=== PATIENT | male | born 1990 | race Caucasian/White ===

== ENCOUNTER 2019-06-14 06:57 | Emergency (ER) | payer OTHER ==
[2019-06-14] MEDS ORDERED: PROMETHAZINE INJ 25 MG/ML AMP ONE (07:22)
[2019-06-14] MEDS ORDERED: FENTANYL CITR 100 MCG/2 ML ONE (07:23)
[2019-06-14] MEDS ORDERED: NA CHLORIDE 0.9% 1,000 ML ONE ×2 (07:23→09:18)
[2019-06-14 07:44] LABS: Absolute Lymphocytes (CBC) 3.3 K/uL (0.7-4.9); Basophils % 0.6 % (0-1.3); Hematocrit 49.4 % (39.6-49.0); Lymphocytes % 47.1 % (15.3-44.8); MPV 8.9 fL (7.6-11.3); RBC Red Blood Cell Count 5.88 M/uL (4.33-5.43)
[2019-06-14] MEDS ORDERED: ALBUTEROL INHALER 60 PUFF/8 GM IH ONE (07:45)
[2019-06-14 07:55] LABS: Potassium 3.5 mmol/L (3.5-5.1)
--- NOTE | 2019-06-14 08:09 | RAD REPORT ---
EXAM DESCRIPTION: RAD - Chest Pa And Lat (2 Views) - 06/14/2019 7:50 am CLINICAL HISTORY: COUGH, fever, body aches COMPARISON: None TECHNIQUE: Frontal and lateral views of the chest were obtained. FINDINGS: The lungs are clear. Heart size is normal and central vasculature is within normal limit s. No pleural effusion or pneumothorax seen. No acute bony finding noted. No aortic abnormality. IMPRESSION: No acute cardiopulmonary process.
--- NOTE | 2019-06-14 09:04 | RAD REPORT ---
EXAM DESCRIPTION: CT - Chest For Pe Angio - 06/14/2019 8:42 am CLINICAL HISTORY: fever;Chest pain COMPARISON: Chest Pa And Lat (2 Views) dated 06/14/2019 TECHNIQUE: Dynamically enhanced 3 mm thick images of the chest were obtained during administration o f approximately 150mL Isovue 370 IV contrast. Coronal and oblique MIP reconstruction images were gene rated and reviewed. Exam utilizes a protocol to evaluate the pulmonary arterial tree. All CT scans are performed using dose optimization technique as appropriate and may include automated exposure control or mA/KV adjustment according to patient size. FINDINGS: No pulmonary emboli are identified. The aorta as imaged shows no acute or suspicious finding. No pericardial thickening or effusion. No consolidation, mass or ground-glass opacification identified. Slight motion degradation is present . Interstitial markings are minimally prominent. Mild viral infiltrate is possible. No pleural effusi on or pleural thickening. No mediastinal or hilar suspicious masses. No chest wall masses or abnormal axillary lymphadenopathy. IMPRESSION: No pulmonary emboli identified. Mild prominence of the interstitial markings. This is potentially a mild edema or viral infiltrate. N o consolidation or ground-glass opacification.
[2019-06-14 09:16] LABS: Blood Morphology Comment NOT SEEN (NOT SEEN); Platelet Estimate ADEQ
--- NOTE | 2019-06-14 10:55 | ER ---
Nurse's Notes [facility] Name: Mane Tineo Jr Age: 28 yrs Sex: Male : 1990 Arrival Date: 06/14/2019 Time: 07:01 Bed 7 Private MD: Diagnosis: Influenza due to certain identified influenza viruses-B;Viral pneumonia, not elsewhere classified Presentation: 06/13 07:44 Chief complaint: Patient states: started with a sore throat a week ago, developed fever em on Thursday, reports trouble breathing and SOB, also developed abdominal cramping and diarrhea on , reports body aches, traveled to [facility] 2 weeks ago. Coronavirus screen: Patient reports a subjective fever or greater than 100.4F, or cough, or shortness of breath, or difficulty breathing. Surgical mask placed on patient. Patient moved to private room, placed in contact and droplet isolation with eye protection until further assessment. Patient reports travel on a cruise ship or to a country the [facility] currently lists as an affected area. Patient reports contact with known and/or suspected case of COVID-19. Infection Prevention Nurse has been notified of patient in isolation for probable COVID-19. Ebola Screen: Patient negative for fever greater than or equal to 101.5 degrees Fahrenheit, and additional compatible Ebola Virus Disease symptoms Patient denies exposure to infectious person. Patient denies travel to an Ebola-affected area in the 21 days before illness onset. No symptoms or risks identified at this time. Initial Sepsis Screen: Does the patient meet any 2 criteria? RR > 20 per min. No. Patient's initial sepsis screen is negative. Does the patient have a suspected source of infection? Yes: Productive cough/pneumonia. Risk Assessment: Do you want to hurt yourself or someone else? Patient reports no desire to harm self or others. 07:44 Method Of Arrival: Ambulatory em 07:44 Acuity: GORDON 3 em Historical: - Allergies: 07:10 No Known Allergies; em - Home Meds: 07:10 None [Active]; em - PMHx: 07:10 None; em - PSHx: 07:10 None; em - Immunization history:: Adult Immunizations up to date. - Social history:: Smoking status: Patient denies any tobacco usage or history of. Screenin:15 Abuse screen: Denies threats or abuse. Nutritional screening: No deficits noted. em Tuberculosis screening: No symptoms or risk factors identified. Fall Risk None identified. Assessment: 07:20 General: Appears in no apparent distress. uncomfortable, well groomed, well developed, em well nourished, Behavior is calm, cooperative, appropriate for age, Reports fever for > 3 days, feeling ill for > 3 days. Pain: Complains of pain in "body aches" Pain currently is 8 out of 10 on a pain scale. Pain began last Thursday. Neuro: Level of Consciousness is awake, alert, obeys commands, Oriented to person, place, time, situation, Appropriate for age. Respiratory: Reports shortness of breath cough that is Airway is patent Respiratory effort is even, unlabored, Respiratory pattern is regular, tachypnea unable to assess due to droplet precaution. Derm: Skin is intact, is healthy with good turgor, Skin is pink, warm \\T\\ dry. Musculoskeletal: Range of motion: intact in all extremities. 08:01 Reassessment: Patient appears in no apparent distress at this time. Patient and/or em family updated on plan of care and expected duration. Pain level reassessed. Patient states feeling better. Patient states symptoms have improved. 08:29 Reassessment: wheeled to CT via stretcher, placed mask on pt per protocol. em 08:40 Reassessment: Patient appears in no apparent distress at this time. returned from CT. em 08:50 Reassessment: Patient appears in no apparent distress at this time. Patient and/or em family updated on plan of care and expected duration. Pain level reassessed. Patient is alert, oriented x 3, equal unlabored respirations, skin warm/dry/pink. no needs at this time, pending CT result. 09:30 Reassessment: Patient appears in no apparent distress at this time. Patient and/or em family updated on plan of care and expected duration. Pain level reassessed. Patient is alert, oriented x 3, equal unlabored respirations, skin warm/dry/pink. 06/14 08:15 Reassessment: pt notified of negative COVID-19 swab results. Advised to continue to 5 monitor symptoms and return if symptoms worsened.. Vital Signs: 06/13 07:06 BP 152 / 97; Pulse 89; Resp 22; Temp 98.7; Pulse Ox 95% on R/A; Weight 121.56 kg; em Height 6 ft. 2 in. (187.96 cm); 08:01 BP 130 / 84; Pulse 86; Resp 24; Pulse Ox 94% on R/A; Pain 4/10; em 09:07 BP 125 / 72; Pulse 82; Resp 20; Pulse Ox 97% on R/A; em 10:52 BP 138 / 78; Pulse 76; Resp 20; Temp 97.6(O); Pulse Ox 97% on R/A; Pain 2/10; em 07:06 Body Mass Index 34.41 (121.56 kg, 187.96 cm) em ED Course: 07:01 Patient arrived in ED. bb 07:05 Justo Xiong MD is Attending Physician. rn 07:06 Arm band placed on. em 07:15 Patient has correct armband on for positive identification. Bed in low position. Call em light in reach. Pulse ox on. NIBP on. 07:20 Inserted saline lock: 20 gauge in right antecubital area, using aseptic technique. em Blood collected. by YULIA Kelley. 07:27 Joshua Carlos, RN is Primary Nurse. em 07:31 Allie Thompson FNP-C is PHCP. rn 07:47 Triage completed. em 07:49 Chest Pa And Lat (2 Views) XRAY In Process Unspecified. EDMS 08:27 [facility] [id number]. bd 08:42 CT Chest For PE Angio In Process Unspecified. EDMS 10:55 IV discontinued, intact, bleeding controlled, No redness/swelling at site. Pressure em dressing applied. 10:55 No provider procedures requiring assistance completed. em Administered Medications: 07:20 Drug: NS 0.9% 1000 ml Route: IV; Rate: 1 bolus; Site: right antecubital; snw 09:19 Follow up: IV Status: Completed infusion; IV Intake: 1000ml em 07:25 Drug: fentaNYL (PF) 50 mcg Route: IVP; Site: right antecubital; snw 08:00 Follow up: Response: No adverse reaction; Marked relief of symptoms; Pain is decreased em 07:25 Drug: Phenergan 25 mg Route: IVP; Site: right antecubital; snw 08:00 Follow up: Response: No adverse reaction; Marked relief of symptoms; Nausea is decreasedem 07:41 Drug: Albuterol HFA Inhaler 2 puffs Route: Inhalation; snw 07:55 Follow up: Response: No adverse reaction em 09:18 Drug: fentaNYL (PF) 50 mcg Route: IVP; Site: right antecubital; snw 09:30 Follow up: Response: No adverse reaction; Marked relief of symptoms; Pain is decreased em 09:18 Drug: NS 0.9% 1000 ml Route: IV; Rate: 1 bolus; Site: right antecubital; snw 10:55 Follow up: IV Status: Completed infusion; IV Intake: 1000ml em Intake: 09:19 IV: 1000ml; Total: 1000ml. em 10:55 IV: 1000ml; Total: 2000ml. em Outcome: 10:53 Discharge ordered by . snw 11:17 Patient left the ED. ss 11:26 Discharged to home ambulatory. em 11:26 Condition: good 11:26 Discharge instructions given to patient, Instructed on discharge instructions, follow up and referral plans. medication usage, Demonstrated understanding of instructions, follow-up care, medications, Prescriptions given X 1. Signatures: Dispatcher [employer] EDMS Lu Vivar Deana RN RN [id number] Allie Thompson, SITE LEADER-C SITE LEADER-Csnw Joshua Carlos, RN RN Lucy Silva RN RN Justo Odell MD MD rn Smirch, Shelby, RN RN ss Corrections: (The following items were deleted from the chart) 08:29 08:25 Health Dept received PUI number from [facility]. [id number]. bd bd
--- NOTE | 2019-06-14 10:55 | EDPHYS ---
Physician Documentation [facility] Name: Mane Tineo Jr Age: 28 yrs Sex: Male : 1990 Arrival Date: 06/14/2019 Time: 07:01 Bed 7 Private MD: ED Physician Justo Xiong HPI: 06/13 07:53 This 28 yrs old Male presents to ER via Ambulatory with complaints of Cough. snw 07:53 The patient or guardian reports cough, described as moderate, difficulty breathing, flu snw symptoms, arthralgias, low-grade fever, myalgias. Onset: The symptoms/episode began/occurred gradually, and became persistent. Severity of symptoms: At their worst the symptoms were moderate, severe, in the emergency department the symptoms are unchanged. Associated signs and symptoms: Pertinent positives: diarrhea, fever, sore throat. The patient has not experienced similar symptoms in the past. The patient has not recently seen a physician. Pt went to [facility] two weeks ago, Thursday he had a scratchy throat, with continued sore throat, headache, fever to 101.8. Thursday and with diarrhea, abdominal cramping. Headache, myalgias, shortness of breath and positioning for comfort progressively since. Last tylenol at 0000. Historical: - Allergies: 07:10 No Known Allergies; em - Home Meds: 07:10 None [Active]; em - PMHx: 07:10 None; em - PSHx: 07:10 None; em - Immunization history:: Adult Immunizations up to date. - Social history:: Smoking status: Patient denies any tobacco usage or history of. ROS: 07:52 Eyes: Negative for injury, pain, redness, and discharge, Neck: Negative for injury, snw pain, and swelling. 07:52 Cardiovascular: Negative for chest pain, palpitations, and edema. 07:52 Back: Negative for injury and pain, : Negative for injury, bleeding, discharge, and swelling, MS/Extremity: Negative for injury and deformity, Skin: Negative for injury, rash, and discoloration, Neuro: Negative for headache, weakness, numbness, tingling, and seizure, Psych: Negative for depression, anxiety, suicide ideation, homicidal ideation, and hallucinations. 07:52 Constitutional: Positive for body aches, chills, fatigue, fever, malaise, poor PO intake. 07:52 ENT: Positive for sore throat. 07:52 Respiratory: Positive for cough, orthopnea, shortness of breath, at rest. 07:52 Abdomen/GI: Positive for abdominal pain, diarrhea. Exam: 07:51 Head/Face: Normocephalic, atraumatic. Eyes: Pupils equal round and reactive to light, snw extra-ocular motions intact. Lids and lashes normal. Conjunctiva and sclera are non-icteric and not injected. Cornea within normal limits. Periorbital areas with no swelling, redness, or edema. ENT: Nares patent. No nasal discharge, no septal abnormalities noted. Tympanic membranes are normal and external auditory canals are clear. Oropharynx with no redness, swelling, or masses, exudates, or evidence of obstruction, uvula midline. Mucous membranes moist. Neck: Trachea midline, no thyromegaly or masses palpated, and no cervical lymphadenopathy. Supple, full range of motion without nuchal rigidity, or vertebral point tenderness. No Meningismus. Chest/axilla: Normal chest wall appearance and motion. Nontender with no deformity. No lesions are appreciated. Cardiovascular: Regular rate and rhythm with a normal S1 and S2. No gallops, murmurs, or rubs. Normal PMI, no JVD. No pulse deficits. 07:51 Abdomen/GI: Soft, non-tender, with normal bowel sounds. No distension or tympany. No guarding or rebound. No evidence of tenderness throughout. Back: No spinal tenderness. No costovertebral tenderness. Full range of motion. Skin: Warm, dry with normal turgor. Normal color with no rashes, no lesions, and no evidence of cellulitis. MS/ Extremity: Pulses equal, no cyanosis. Neurovascular intact. Full, normal range of motion. Neuro: Awake and alert, GCS 15, oriented to person, place, time, and situation. Cranial nerves II-XII grossly intact. Motor strength 5/5 in all extremities. Sensory grossly intact. Cerebellar exam normal. Normal gait. Psych: Awake, alert, with orientation to person, place and time. Behavior, mood, and affect are within normal limits. 07:51 Constitutional: The patient appears awake, listless, obviously ill, uncomfortable. 07:51 Respiratory: the patient does not display signs of respiratory distress, Respirations: shallow respirations, tachypnea, Breath sounds: rhonchi, that are mild, are scattered, Respiratory rate: 22 Vital Signs: 07:06 BP 152 / 97; Pulse 89; Resp 22; Temp 98.7; Pulse Ox 95% on R/A; Weight 121.56 kg; em Height 6 ft. 2 in. (187.96 cm); 08:01 BP 130 / 84; Pulse 86; Resp 24; Pulse Ox 94% on R/A; Pain 4/10; em 09:07 BP 125 / 72; Pulse 82; Resp 20; Pulse Ox 97% on R/A; em 10:52 BP 138 / 78; Pulse 76; Resp 20; Temp 97.6(O); Pulse Ox 97% on R/A; Pain 2/10; em 07:06 Body Mass Index 34.41 (121.56 kg, 187.96 cm) em MDM: 07:05 Patient medically screened. rn 07:50 Data reviewed: vital signs, nurses notes. Data interpreted: Pulse oximetry: on room air snw is 94 %. Interpretation: hypoxia. Counseling: I had a detailed discussion with the patient and/or guardian regarding: the historical points, exam findings, and any diagnostic results supporting the discharge/admit diagnosis, the presence of at least one elevated blood pressure reading (>120/80) during this emergency department visit, lab results, radiology results. Response to treatment: the patient's symptoms have mildly improved after treatment. 09:16 Response to treatment: feeling about the same, unable to lie back comfortably. Fentanyl snw 50mcg and additional 1L NS repeated. . 09:32 Response to treatment: pt still feels as if he is breathing through a straw, still in snw tri-pod position. Physician consultation: Physician consultation: recommend hospitalization. Pt wants to try to lie down and see it he can tolerate before admitting. 10:51 Refusal of service: The patient/guardian displays adequate decision making capability snw and despite a detailed discussion of alternatives, benefits, risks, and consequences refuses: Admission to the hospital for further work-up and treatment, encouraged admission but pt states he is breathing easier. VSS. IV dc'd, pressure bandage applied. . Special discussion: Based on the history and exam findings, there is no indication for further emergent testing or inpatient evaluation. I discussed with the patient/guardian the need to see the primary care provider for further evaluation of the symptoms. 06/13 07:24 Order name: Flu; Complete Time: 07:48 7 06/13 07:24 Order name: Strep; Complete Time: 07:48 7 06/13 07:24 Order name: CBC with Diff; Complete Time: 09:19 7 06/13 07:24 Order name: Chem 7; Complete Time: 08:09 7 06/13 07:24 Order name: Misc. Lab Test 7 06/13 07:47 Order name: Throat Culture EDAR 06/13 07:24 Order name: Chest Pa And Lat (2 Views) XRAY; Complete Time: 08:14 7 06/13 08:13 Order name: CT Chest For PE Angio; Complete Time: 09:10 w 06/13 09:17 Order name: Manual Differential; Complete Time: 09:19 [facility] 06/13 08:26 Order name: consult Order-[facility] snw Administered Medications: 07:20 Drug: NS 0.9% 1000 ml Route: IV; Rate: 1 bolus; Site: right antecubital; snw 09:19 Follow up: IV Status: Completed infusion; IV Intake: 1000ml em 07:25 Drug: fentaNYL (PF) 50 mcg Route: IVP; Site: right antecubital; snw 08:00 Follow up: Response: No adverse reaction; Marked relief of symptoms; Pain is decreased em 07:25 Drug: Phenergan 25 mg Route: IVP; Site: right antecubital; snw 08:00 Follow up: Response: No adverse reaction; Marked relief of symptoms; Nausea is decreasedem 07:41 Drug: Albuterol HFA Inhaler 2 puffs Route: Inhalation; snw 07:55 Follow up: Response: No adverse reaction em 09:18 Drug: fentaNYL (PF) 50 mcg Route: IVP; Site: right antecubital; snw 09:30 Follow up: Response: No adverse reaction; Marked relief of symptoms; Pain is decreased em 09:18 Drug: NS 0.9% 1000 ml Route: IV; Rate: 1 bolus; Site: right antecubital; snw 10:55 Follow up: IV Status: Completed infusion; IV Intake: 1000ml em Disposition: 11:58 Co-signature as Attending Physician, Justo Xiong MD. rn Disposition: 06/14/19 10:53 Discharged to Home. Impression: Influenza due to certain identified influenza viruses - B, Viral pneumonia, not elsewhere classified. - Condition is Stable. - Discharge Instructions: Influenza, Adult. - Prescriptions for promethazine 25 mg Oral Tablet - take 1 tablet by ORAL route every 6 hours As needed; 20 tablet. - Work release form, Medication Reconciliation Form, Thank You Letter, Antibiotic Education, Prescription Opioid Use form. - Follow up: Emergency Department; When: As needed; Reason: Trouble breathing, Worsening of condition. Follow up: Private Physician; When: 1 week; Reason: Recheck today's complaints, Continuance of care, Re-evaluation by your physician. - Notes: Please avoid Motrin. Tylenol as needed for fever/pain. Continue Albuterol Inhaler 2 inhalations four times daily for one week. Covid 19 results will be called to you when complete. Quarantine, at home,until further notice. Signatures: Dispatcher [employer] EDAR Allie Thompson, ERIKA-C GAUGE MAKER APPRENTICE-Csnw Joshua Carlos, RN RN Justo Xiong MD MD rn Smirch, Shelby, RN RN ss Leal, Jahala, RN RN [id number] Corrections: (The following items were deleted from the chart) 11:17 10:53 06/14/2019 10:53 Discharged to Home. Impression: Influenza due to certain ss identified influenza viruses - B; Viral pneumonia, not elsewhere classified. Condition is Stable. Forms are Medication Reconciliation Form, Thank You Letter, Antibiotic Education, Prescription Opioid Use. Follow up: Emergency Department; When: As needed; Reason: Trouble breathing, Worsening of condition. Follow up: Private Physician; When: 1 week; Reason: Recheck today's complaints, Continuance of care, Re-evaluation by your physician. snw
[2019-06-14 11:30] VITALS: O2SAT 97
[2019-06-14 11:32] VITALS: BP 138/78; TEMP 97.6
== END 2019-06-14 11:17 | disposition home or self-care (01) ==
LOC: ER 06:57
DX: Z03.818 Encounter for observation for suspected exposure to other biological agents ruled out (principal); J10.08 Influenza due to other identified influenza virus with other specified pneumonia; J12.9 Viral pneumonia, unspecified
CPT/HCPCS: 96361; 87070; 85025; 80048; 36415; 87081; 87804 ×2; 71275; 71046; 96375; 96374; 99284; U0001; Q9967; J2550; J3010; J7030 ×2